=== PATIENT | female | born 1995 | race American Indian/Alaskan Native ===

== ENCOUNTER 2017-05-23 13:41 | Emergency (ER) | payer OTHER ==
[2017-05-23] MEDS ORDERED: Sodium Chloride 0.9% 10 ML Syringe FLUSH PRN (14:48)
[2017-05-23] MEDS ORDERED: HYDROmorphone 1 MG/ML Syringe IVPUSH ONE (14:49)
[2017-05-23] MEDS ORDERED: Ondansetron 4 MG/2 ML SDV IV ONE (14:49)
--- NOTE | 2017-05-23 14:49 | CR ---
Clinical history: 21-year-old female unable to bear weight (injury) left knee. Circumstances of injur y.... "unknown". Interpretation: 4 views left knee abnormal. Acute nondisplaced fracture lateral aspect tibial plateau, proximal tibia (longitudinal) that extends into the knee joint with associated small effusion. Suggestion of subcutaneous air (laceration? Punc ture?) laterally. Symmetric normal spacing of the knee joint and no sign of radiopaque loose joint body. No foreign bod ies. No sign of other fracture or dislocation left knee.
[2017-05-23] MEDS ORDERED: Acetaminophen/HYDROcodone 325-10 MG Tab PO ONE ×2 (15:15→16:51)
[2017-05-23 15:44] VITALS: BP 112/82
--- NOTE | 2017-05-23 15:46 | EDM.PDOC ---
Scribed by Jerri Bradford 05/23/17 1546 for Vlad Richardson MD ED HPI GENERAL MEDICAL PROBLEM - General Chief Complaint: Lower Extremity Injury/Pain Stated Complaint: [id number] FELL AND CANT PUT ANY WEIGHT LEFT KNEE Time Seen by Provider: 05/23/17 14:08 Source of Information: Reports: Patient History Limitations: Reports: No Limitations - History of Present Illness INITIAL COMMENTS - FREE TEXT/NARRATIVE: Arrives by POV with complaint of left knee pain sustained last night from a ground level fall. Patient required assistance to get up. Has been unable to bear weight since that time. Denies any other injury. Location: Reports: Lower Extremity, Left Quality: Reports: Ache Severity: Severe Improves with: Reports: Immobilization Worsens with: Reports: Movement Associated Symptoms: Reports: No Other Symptoms Left Knee Pain Score (Numeric/FACES): 10 - Related Data Allergies Allergy/AdvReac Type Severity Reaction Status Date / Time No Known Allergies Allergy Verified 05/23/17 14:06 Home Meds: Home Meds Etonogestrel [Nexplanon] 1 injection IJ .EVERY 3 YEARS 05/23/17 [History] Past Medical History - Past Health History Medical/Surgical History: Denies Medical/Surgical History - Infectious Disease History Infectious Disease History: Reports: Chicken Pox Social & Family History - Family History Family Medical History: Noncontributory - Tobacco Use Smoking Status *Q: Never Smoker Second Hand Smoke Exposure: No - Caffeine Use Caffeine Use: Reports: Soda - Alcohol Use Days Per Week of Alcohol Use: 0 - Recreational Drug Use Recreational Drug Use: No Drug Use in Last 12 Months: Yes Recreational Drug Type: Reports: Marijuana/Hashish Recreational Drug Use Frequency: Daily Recreational Drug Last Use: 06/19/16 - Living Situation & Occupation Living situation: Reports: with Family Review of Systems - Review of Systems Review Of Systems: ROS reveals no pertinent complaints other than HPI. ED EXAM, GENERAL - Physical Exam Exam: See Below Exam Limited By: No Limitations General Appearance: Alert, WD/WN, No Apparent Distress, Obese Neck: Normal Inspection, Supple, Non-Tender, Full Range of Motion Respiratory/Chest: No Respiratory Distress Cardiovascular: Normal Peripheral Pulses Back Exam: Normal Inspection, Full Range of Motion, NT Extremities: Other (left knee with generalized tenderness and swelling. No visible bruising, skin intact. Left knee has decreased ROM due to pain. Unable to bear weight. ) Neurological: Alert, Oriented, CN II-XII Intact, Normal Cognition, Normal Gait, Normal Reflexes, No Motor/Sensory Deficits Psychiatric: Normal Affect, Normal Mood Skin Exam: Warm, Dry, Intact, Normal Color, No Rash Course - Vital Signs Last Recorded V/S: Last Vital Signs Temp 36.8 C 05/23/17 15:43 Pulse 101 H 05/23/17 15:43 Resp 18 05/23/17 15:43 BP 112/82 05/23/17 15:43 Pulse Ox 100 05/23/17 15:43 - Orders/Labs/Meds Orders: Active Orders 24 hr Category Date Time Status C Collar Applied [Spinal Immobilization] [] Care 05/23/17 14:58 Inactive ASDIRECTED C-Spine Precautions [Cervical Spine Precautions] [] Care 05/23/17 14:50 Inactive ASDIRECTED Immobilizer [RC] ASDIRECTED Care 05/23/17 15:14 Active Peripheral IV Care [] . DIRECTED Care 05/23/17 14:49 Inactive Meds: Medications Discontinued Medications Generic Name Dose Route Start Last Admin Trade Name Freq PRN Reason Stop Dose Admin Hydrocodone Bitart/Acetaminophen 1 tab 05/23/17 15:15 05/23/17 15:25 [place] 325-10 Mg PO 05/23/17 15:16 1 tab ONETIME ONE Administration - Radiology Interpretation Free Text/Narrative:: Left knee x-ray: Acute nondisplaced fracture lateral aspect tibial plateau, proximal tibia (longitudinal) that extends into the knee joint with associated small effusion. Suggestion of subcutaneous air (laceration? puncture?) laterally. See rad report. Departure - Departure Time of Disposition: 15:42 Disposition: Home, Self-Care 01 Condition: Fair Clinical Impression: Tibial plateau fracture Qualifiers: Encounter type: initial encounter Fracture type: closed Laterality: left Qualified Code(s): S82.142A - Displaced bicondylar fracture of left tibia, initial encounter for closed fracture - Discharge Information Instructions: Nondisplaced Tibial Plateau Fracture Forms: ED Department Discharge Additional Instructions: RX: Hydrocodone 5mg/325mg. Call [facility] orthopedic clinic tomorrow morning ([phone]). Use crutches at all times, do not remove splint. - My Orders Last 24 Hours: My Active Orders 05/23/17 14:49 Peripheral IV Care [RC] . DIRECTED 05/23/17 14:50 C-Spine Precautions [Cervical Spine Precautions] [RC] ASDIRECTED 05/23/17 14:58 C Collar Applied [Spinal Immobilization] [RC] ASDIRECTED 05/23/17 15:14 Immobilizer [RC] ASDIRECTED - Assessment/Plan Last 24 Hours: My Active Orders 05/23/17 14:49 Peripheral IV Care [RC] . DIRECTED 05/23/17 14:50 C-Spine Precautions [Cervical Spine Precautions] [RC] ASDIRECTED 05/23/17 14:58 C Collar Applied [Spinal Immobilization] [RC] ASDIRECTED 05/23/17 15:14 Immobilizer [RC] ASDIRECTED I have read and agree with the documentation that has been completed regarding this visit. By signing this record, I attest that the documentation was completed in my physical presence and is an accurate record of the encounter.
[2017-05-23] MEDS ORDERED: Acetaminophen/HYDROcodone 325-10 MG Tab ONE (16:51)
== END 2017-05-23 16:58 | disposition home or self-care (01) ==
LOC: DL.ED 13:41
DX: S82.142A Displaced bicondylar fracture of left tibia, initial encounter for closed fracture (principal); W18.30XA Fall on same level, unspecified, initial encounter
CPT/HCPCS: 73562; 99284; A9270